=== PATIENT | female | born 2000 | race Caucasian/White ===

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

== ENCOUNTER → 2022-12-02 14:18 | Outpatient (BNVA) | payer OTHER, SELFPAY | PROVIDERS: PCP Registered Nurse; Visit Provider Registered Nurse | DX: Z30.41 Encounter for surveillance of contraceptive pills (principal); Z78.9 Other specified health status | CPT/HCPCS: 87081; 87205; 88175 ==

== ENCOUNTER 2023-12-15 02:33 | Emergency (ER) | payer OTHER, SELFPAY ==
[2023-12-15 02:36] VITALS: BP 134/79; PULSE 134; RESP 20; TEMP 36.4; O2SAT 98; BMI 25.7
[2023-12-15] MEDS: dexamethasone 10 mg/mL INJ IVP (02:58)
[2023-12-15] MEDS: famotidine 20 mg/2 mL INJ 40 MG IVP (02:58)
[2023-12-15] MEDS: sodium chloride 0.9% 1,000 ML 999 ML IV (02:58)
--- NOTE | 2023-12-15 03:05 | ED_ITS ---
HPI - Allergic Reaction General: Chief complaint: Allergic Reaction Stated complaint: Allerigic reaction Time Seen by Provider: 12/15/23 02:39 History of Present Illness: HPI narrative: Patient presents to the ER with evaluation of allergic reaction started about 2 AM. Patient is not sure what caused the night but he woke her from sleep itching and when she woke up she began to have hives all over her arms trunk and legs. Patient does not known what caused this reaction. Patient does have hypersensitivity reaction to several things. Patient was given 50 mg of Benadryl approximately 30 minutes prior to arrival. Patient does not have any problems breathing or swallowing at this time. Review of Systems General: Reports: 10 or more systems reviewed and unremarkable except in HPI and below PFSH ED PFSH: Family History Sister Diabetes Grandfather Diabetes Other Cancer Social History Smoking and tobacco/nicotine status: never used tobacco/nicotine Second hand smoke exposure: No Alcohol intake: never Substance/Drug Use: never Physical Exam Const: COMMON NORMALS: no acute distress, average body habitus, patient oriented x3, no limitations, healthy appearing, alert and well nourished HENMT: COMMON NORMALS: normocephalic, atraumatic, hearing grossly normal bilaterally, external ears normal, Normal external nose present and moist oral mucous membranes HEAD & SCALP: normocephalic and atraumatic NOSE: Normal external nose present EXTERNAL EAR: Yes external ears normal Neck/C-Spine: COMMON NORMALS: no JVD Chest: COMMONS NORMALS: normal inspection of the chest and normal palpation of entire chest wall Resp: COMMON NORMALS: normal respiratory effort, No retractions, No use of accessory muscles and clear to auscultation bilaterally AUSCULTATION: clear to auscultation bilaterally Cardio: COMMON NORMALS: no JVD, regular rate, regular rhythm, S1 normal heart sound present, S2 normal heart sound present, No gallops present (Cardio), No clicks present (Cardio), No murmurs present (Cardio) and No rub (Cardio) RATE: regular rate RHYTHM: regular rhythm HEART SOUNDS: S1 normal heart sound present and S2 normal heart sound present GI: COMMON NORMALS: Normal to inspection, nondistended, normoactive bowel sounds present, Soft to palpation, non-tender, No hepatosplenomegaly present and no masses PALPATION: Yes Soft to palpation and Yes No hepatosplenomegaly present Neuro: COMMON NORMALS: patient oriented x3 SENSORIUM/ORIENTATION: Yes alert Skin: NARRATIVE SKIN EXAM: Erythema and pruritic type hive-like rash all over bilateral upper and lower extremities worse on the inner thighs and shoulder area and along the trunk. Course Vital Signs: Vital signs: Vital Signs Temperature 97.5 F L 12/15/23 02:36 Pulse Rate 82 12/15/23 03:41 Respiratory Rate 20 H 12/15/23 02:36 Blood Pressure 107/71 12/15/23 03:41 Pulse Oximetry 98 12/15/23 03:41 Oxygen Delivery Me thod Room Air 12/15/23 02:36 MDM - Allergic Reaction Medical Decision Making Prior to arrival at the ER patient took 50 mg Benadryl, will patient was given 1 L normal saline, 40 mg Pepcid IV, 10 mg Decadron IV patient was observed for over an hour and rash resolved patient is feeling much better. Patient be discharged. Differential Diagnosis Likely allergic reaction and urticaria Medical Records I reviewed the patient's medical records. Lab Data I reviewed the patient's lab results. No radiology studies performed this visit Discharge Plan Discharge Patient Disposition: Home Clinical Impression: Urticaria Allergic reaction Qualifiers: Encounter type: initial encounter Qualified Code(s): T78.40XA - Allergy, un specified, initial encounter Condition: Stable Prescriptions: New EpiPen 2-Rosales 0.3 mg/0.3 mL auto-injector 0.3 mg IM Q15M PRN (Reason: hypersensitivity reaction) Qty: 2 0RF Rx Instructions: for 3 doses No Action naproxen [EC-Naproxen] 500 mg tablet,delayed release (DR/EC) 500 mg PO BID 7 Days Qty: 14 0RF Dupixent Pen 200 mg/1.14 mL pen injector SUBCUT levonorgestrel-ethinyl estrad [Levora-28] 0.15-0.03 mg tablet 1 tab PO DAILY Qty: 84 4RF epinephrine 0.3 mg/0.3 mL auto-injector 0.3 mg IM Q15M PRN (Reason: hypersensitivity reaction) Qty: 2 0RF Discharge Orders: Discharge ED (Routine); Ordered 12/15/23 Ordered By: Karlo Montez Referrals: Stephon Shah FNP [Primary Care Provider] - 1 week Patient Instructions: Allergic Reaction Activity Restrictions/Additional Instructions: You are given 10 mg Decadron and 40 mg of Pepcid and your IV. You have been prescribed an EpiPen 2 pack to your pharmacy. Use as directed. Please follow- up with your family practitioner in the next 7 days as needed for further evaluation and treatment. Coding Level of Care Code ED Body Rolling Machine Tender for Deisy Sanders
[2023-12-15 03:41] VITALS: BP 107/71; PULSE 82; O2SAT 98
[2023-12-15 04:17] VITALS: BP 103/68; PULSE 75; RESP 18; O2SAT 100
== END 2023-12-15 04:12 | disposition home or self-care (01) ==
PROVIDERS: Emergency Provider Emergency Medicine; PCP Registered Nurse
DX: L50.0 Allergic urticaria (principal)
CPT/HCPCS: 96374; 96375; 99284; J1100; J3490; J7030